=== PATIENT | female | born 1960 | race Caucasian/White ===

== ENCOUNTER 2021-06-16 11:20 | Emergency (ER) | payer SELFPAY ==
[~2021-06-16] VITALS: Ht 154.9 cm; Wt 47.6 kg
--- NOTE | 2021-06-16 12:11 | ED Abdominal Pain ---
General Chief Complaint: Abdominal/GI Problems Stated Complaint: ABD PAIN Nursing Triage Note: PATIENT STATES SHE HAS BEEN KATY EXTREMELY PAINFUL ABDOMINAL PAIN SINCE 2019 LAST EVENING. STATES THIS MORING BECAM UNBERABLE AND CALLED EMS. PATIENT IS BROUGHT TO ROOM 1 BY EMS. ALERT AND ORIENTED X4, CALL LIGHT IN REACH Source of Information: Patient Exam Limitations: No Limitations History of Present Illness Date Seen by Provider: Jun 16, 2021 Time Seen by Provider: 12:00 Initial Comments This is a 61 yo female who presented to the ER via [facility] with c/o severe abdominal pain that started around 2029 last night. States she woke today and pain was so severe she was unable to stand up straight. Pain is located in RLQ and LLQ, 3/10 at this time. No treatment prior to arrival. Does have history of colonic inertia. No fever, chills, cough, shortness of breath. States she had acid reflux/chest discomfort last night and agin this morning. No discomfort at this time. Denies blood or dark tarry stools. Allergies and Home Medications Allergies Coded Allergies: No Known Drug Allergies (Unverified , 06/16/21) Home Medications Ciprofloxacin HCl 500 Mg Tablet, 500 MG PO BID Prescribed by: ALEX SMITH on 06/16/21 140 Metronidazole 500 Mg Tablet, 500 MG PO TID Prescribed by: ALEX SMITH on 06/16/21 140 Ondansetron 4 Mg Tab.rapdis, 4 MG PO Q6H PRN for NAUSEA/VOMITING Prescribed by: ALEX SMITH on 06/16/21 140 Patient Home Medication List Home Medication List Reviewed: Yes Review of Systems Review of Systems Constitutional: no symptoms reported EENTM: No Symptoms Reported Respiratory: No Symptoms Reported Cardiovascular: No Symptoms Reported Gastrointestinal: See HPI Genitourinary: No Symptoms Reported Musculoskeletal: no symptoms reported Skin: no symptoms reported Psychiatric/Neurological: No Symptoms Reported Endocrine: No Symptoms Reported Hematologic/Lymphatic: No Symptoms Reported Past Omgriqo-Hldxpy-Hqbeoy Hx Patient Social History Tobacco Use?: No Substance use?: No Alcohol Use?: Yes Alcohol type: Beer Immunizations Up To Date Influenza Vaccine Up-to-Date: No; Not Current First/Initial COVID19 Vaccinat: 01/23/21 Second COVID19 Vaccination [place]: JANUARY 2021 COVID19 Vaccine Food And Beverage Manager: ALBERTA Physical Exam Vital Signs Vital Signs - First Documented 06/16/21 11:20 Temp 36.4 Pulse 75 Resp 18 B/P (MAP) 133/80 (97) Pulse Ox 100 O2 Delivery Room Air Capillary Refill : Less Than 3 Seconds Height/Weight/BMI Height: '" Weight: lbs. oz. kg; 19.00 BMI Method: General Appearance: WD/WN, no apparent distress HEENT: PERRL/EOMI, normal ENT inspection, pharynx normal Neck: full range of motion, normal inspection Respiratory: lungs clear, normal breath sounds, no respiratory distress, no accessory muscle use Cardiovascular: regular rate, rhythm, no edema, no murmur Peripheral Pulses: 2+ Radial Pulses (R), 2+ Radial Pulses (L) Gastrointestinal: soft, no organomegaly, no pulsatile mass, abnormal bowel sounds (hypoactive x4 ); No distended, No guarding; tenderness (RLQ and LLQ tenderness ) Extremities: normal range of motion, normal inspection Neurologic/Psychiatric: no motor/sensory deficits, alert, normal mood/affect, oriented x 3 Skin: normal color, warm/dry Progress/Results/Core Measures Results/Orders Lab Results Laboratory Tests Test 06/16/21 11:30 Range/Units White Blood Count 11.6 H 4.3-11.0 10^3/uL Red Blood Count 4.80 3.80-5.11 10^6/uL Hemoglobin 14.0 11.5-16.0 g/dL Hematocrit 42 35-52 % Mean Corpuscular Volume 87 80-99 fL Mean Corpuscular Hemoglobin 29 25-34 pg Mean Corpuscular Hemoglobin Concent 34 32-36 g/dL Red Cell Distribution Width 13.2 10.0-14.5 % Platelet Count 384 130-400 10^3/uL Mean Platelet Volume 9.4 9.0-12.2 fL Immature Granulocyte % (Auto) 0 % Neutrophils (%) (Auto) 78 H 42-75 % Lymphocytes (%) (Auto) 18 12-44 % Monocytes (%) (Auto) 4 0-12 % Eosinophils (%) (Auto) 0 0-10 % Basophils (%) (Auto) 0 0-10 % Neutrophils # (Auto) 9.0 H 1.8-7.8 10^3/uL Lymphocytes # (Auto) 2.1 1.0-4.0 10^3/uL Monocytes # (Auto) 0.4 0.0-1.0 10^3/uL Eosinophils # (Auto) 0.0 0.0-0.3 10^3/uL Basophils # (Auto) 0.0 0.0-0.1 10^3/uL Immature Granulocyte # (Auto) 0.0 0.0-0.1 10^3/uL Prothrombin Time 12.5 12.2-14.7 SEC INR Comment 0.9 0.8-1.4 Activated Partial Thromboplast Time 25 24-35 SEC Sodium Level 140 135-145 MMOL/L Potassium Level 3.4 L 3.6-5.0 MMOL/L Chloride Level 109 H 98-107 MMOL/L Carbon Dioxide Level 18 L 21-32 MMOL/L Anion Gap 13 5-14 MMOL/L Blood Urea Nitrogen 11 7-18 MG/DL Creatinine 0.76 0.60-1.30 MG/DL Estimat Glomerular Filtration Rate > 60 BUN/Creatinine Ratio 14 Glucose Level 150 H 70-105 MG/DL Calcium Level 9.3 8.5-10.1 MG/DL Corrected Calcium 9.1 8.5-10.1 MG/DL Magnesium Level 1.7 1.6-2.4 MG/DL Total Bilirubin 0.4 0.1-1.0 MG/DL Aspartate Amino Transf (AST/SGOT) 15 5-34 U/L Alanine Aminotransferase (ALT/SGPT) 16 0-55 U/L Alkaline Phosphatase 61 40-136 U/L Total Creatine Kinase 55 29-168 U/L Creatine Kinase MB 1.2 <6.6 NG/ML Myoglobin 29.0 10.0-92.0 NG/ML Troponin I < 0.028 <0.028 NG/ML Total Protein 7.4 6.4-8.2 GM/DL Albumin 4.2 3.2-4.5 GM/DL My Orders Orders - ALEX SMITH SANDING MACHINE BUFFER Cbc With Automated Diff (06/16/21 12:06) Magnesium (06/16/21 12:06) Chest 1 View, Ap/Pa Only (06/16/21 12:06) Ekg Tracing (06/16/21 12:06) Comprehensive Metabolic Panel (06/16/21 12:06) Myoglobin Serum (06/16/21 12:06) Protime With Inr (7/21/21 12:06) Partial Thromboplastin Time (06/16/21 12:06) O2 (06/16/21 12:06) Monitor-Rhythm Ecg Trace Only (06/16/21 12:06) Ed Iv/Invasive Line Start (06/16/21 12:06) Creatine Kinase (06/16/21 12:06) Creatine Kinase Mb (06/16/21 12:06) Troponin I (06/16/21 12:06) Ct Abdomen/Pelvis W (06/16/21 12:06) Ns Iv 1000 Ml (Sodium Chloride 0.9%) (06/16/21 12:15) Iohexol Injection (Omnipaque 350 Mg/Ml 1 (06/16/21 12:45) Received Contrast (Hold Metformin- Contr (06/16/21 12:45) Ns (Ivpb) (Sodium Chloride 0.9% Ivpb Bag (06/16/21 12:45) Sodium Chloride Flush (Catheter Flush Sy (06/16/21 12:45) Ketorolac Injection (Toradol Injection) (06/16/21 13:30) Metronidazole Tablet (Flagyl Tablet) (06/16/21 14:00) Medications Given in ED Vital Signs/I&O 06/16/21 06/16/21 11:20 14:22 Temp 36.4 Pulse 75 89 Resp 18 20 B/P (MAP) 133/80 (97) 108/65 (97) Pulse Ox 100 98 O2 Delivery Room Air Room Air 06/17/21 00:00 Intake Total 1000 ml Balance 1000 ml Blood Pressure Mean: 97 Progress Progress Note : Progress Note Much improved with Toradol. Reviewed plan of care and she is agreeable with plan. Initial ECG Impression Date: Jun 16, 2021 Initial ECG Impression Time: 12:29 Initial ECG Rate: 77 Initial ECG Rhythm: Normal Sinus Initial ECG Intervals: Normal Initial ECG Impression: Nonspecific Changes Initial ECG Comparisson: No Previous ECG Available Diagnostic Imaging Diagonstic Imaging: CT Plain Films/CT/US/NM/MRI: abdomen, pelvis Comments [place], [place] NAME: YNES VIZCAINO [facility] REC#: [id number] PT STATUS: REG ER : 1960 PHYSICIAN: ALEX SMITH SANDING MACHINE BUFFER ADMIT DATE: 06/16/21/ER Signed Date of Exam:06/16/21 CT ABDOMEN/PELVIS W EXAMINATION: CT abdomen and pelvis with intravenous contrast. TECHNIQUE: Multiple contiguous axial images were obtained through the abdomen and pelvis after the uneventful administration of intravenous contrast. All CT scans use one or more of the following dose optimizing techniques: automated exposure control, MA and/or KvP adjustment based on patient size and exam type or iterative reconstruction. HISTORY: RLQ/LLQ abdominal pain COMPARISON: None available. FINDINGS: Lung bases: Bibasilar dependent atelectasis. Solid organs: The liver is normal without focal lesion. The gallbladder is normal. There is no biliary ductal dilation. Pancreas is normal. Spleen is normal. Adrenal glands are normal. The kidneys are normal without hydronephrosis. Bowel: The stomach and small bowel are normal without obstruction. There is wall thickening of the sigmoid colon with mild inflammatory stranding. There is a large amount of stool seen throughout the remaining colon. No findings of acute appendicitis. Peritoneum: There is mild free fluid in the pelvis with mesenteric edema. No loculated fluid collection or intra-abdominal free air. No suspicious lymphadenopathy. Vasculature: Calcification of the aorta without aneurysm. Musculoskeletal: No suspicious osseous lesion or compression fracture. Pelvis: The uterus is surgically absent. No adnexal mass. The urinary bladder is normal. IMPRESSION: 1. Wall thickening and inflammatory stranding of the sigmoid colon with mild mesenteric edema and pelvic free fluid. These findings could represent infectious or inflammatory colitis and reactive ascites/edema. 2. Large volume of stool seen throughout the colon which can be seen with constipation in the appropriate clinical setting. Dictated by: Dictated on workstation # [id number] Dict: 06/16/21 1309 Trans: 06/16/21 1358 [id number] Interpreted by: RONAN ORO DO Electronically signed by: RONAN ORO DO 06/16/21 1357 Reviewed: Reviewed by Ne Diagonstic Imaging: Xray Plain Films/CT/US/NM/MRI: chest Comments [facility], [place] NAME: YNES VIZCAINO [facility] REC#: [id number] PT STATUS: DEP ER : 1960 PHYSICIAN: ALEX SMITH APRN ADMIT DATE: 06/16/21/ER Signed Date of Exam:06/16/21 CHEST 1 VIEW, AP/PA ONLY Indication: Abdominal pain and chest pain Frontal chest obtained at 1253 hours p.m. Heart and mediastinal silhouette are normal in appearance. The lungs are clear. There is no pneumothorax or pleural fluid. There is no free intraperitoneal air. IMPRESSION: Negative chest. Dictated by: Dictated on workstation # [id number] Dict: 06/16/21 1305 Trans: 06/16/21 1712 [facility] [id number] Interpreted by: CHRIS CRUZ MD Electronically signed by: CHRIS CRUZ MD 06/16/211711 Reviewed: Reviewed by Me Departure Impression Primary Impression: Colitis Additional Impressions: Constipation by delayed colonic transit Colonic inertia Disposition: HOME, SELF-CARE Condition: Improved Departure-Patient Inst. Decision time for Depature: 14:01 Referrals: CHRIS ESTRADA MD (PCP) Primary Care Physician Patient Instructions: Colitis Add. Discharge Instructions: Plan: 1. May take Ibuprofen 600mg every 6 hours as needed for severe pain. You may also alternate with Tylenol per package. 2. Clear liquid diet for the next 2-3 days. May eat applesauce with Ibuprofen. 3. Take antibiotics as directed and complete full course even if you begin to feel better. 4. Walk frequently at least 4x a day. 5. Take an over the counter probiotic as directed while you are taking your antibiotics. 6. Follow up with Dr. Estrada early next week. 7. May take Zofran 4mg by mouth every 6 hours as needed. 8. Return for any new, concerning, or worsening symptoms. All discharge instructions reviewed with patient and/or family. Voiced understanding. Scripts Metronidazole (Flagyl) 500 Mg Tablet 500 MG PO TID for 10 Days, #30 TAB 0 Refills Prov: ALEX SMITH SANDING MACHINE BUFFER 06/16/21 Ciprofloxacin HCl (Ciprofloxacin HCl) 500 Mg Tablet 500 MG PO BID for 10 Days, #20 TAB 0 Refills Prov: ALEX SMITH SANDING MACHINE BUFFER 06/16/21 Ondansetron (Ondansetron Odt) 4 Mg Tab.rapdis 4 MG PO Q6H PRN for NAUSEA/VOMITING, #30 TAB 0 Refills Prov: ALEX SMITH APRN 06/16/21 ALEX SMITH APRN Jun 16, 2021 12:11
[2021-06-16 12:15] LABS: BASOPHILS % (AUTO) 0 % (0-10); EOSINOPHILS % (AUTO) 0 % (0-10); HEMATOCRIT 42 % (35-52); LYMPHOCYTES # (AUTO) 2.1 10^3/uL (1.0-4.0); LYMPHOCYTES % (AUTO) 18 % (12-44); MEAN CORPUSCULAR HEMOGLOBIN 29 pg (25-34); MEAN CORPUSCULAR HGB CONC 34 g/dL (32-36); MEAN CORPUSCULAR VOLUME 87 fL (80-99); MEAN PLATELET VOLUME 9.4 fL (9.0-12.2); MONOCYTES # (AUTO) 0.4 10^3/uL (0.0-1.0); MONOCYTES % (AUTO) 4 % (0-12); NEUTROPHILS % (AUTO) 78 % (42-75); PLATELET COUNT 384 10^3/uL (130-400); WHITE BLOOD COUNT 11.6 10^3/uL (4.3-11.0)
[2021-06-16] MEDS ORDERED: NS IV 1000 ML 1,000 ML IV ONE (12:15)
[2021-06-16 12:26] LABS: INR 0.9 (0.8-1.4); PROTHROMBIN TIME PATIENT 12.5 SEC (12.2-14.7)
[2021-06-16 12:27] LABS: ALBUMIN 4.2 GM/DL (3.2-4.5)
[2021-06-16 12:28] LABS: CHLORIDE 109 MMOL/L (98-107); POTASSIUM 3.4 MMOL/L (3.6-5.0); SODIUM 140 MMOL/L (135-145)
[2021-06-16 12:29] LABS: CALCIUM 9.3 MG/DL (8.5-10.1)
[2021-06-16 12:30] LABS: GLUCOSE 150 MG/DL (70-105); TOTAL PROTEIN 7.4 GM/DL (6.4-8.2)
[2021-06-16 12:31] LABS: CARBON DIOXIDE 18 MMOL/L (21-32)
[2021-06-16 12:32] LABS: BILIRUBIN,TOTAL 0.4 MG/DL (0.1-1.0)
[2021-06-16 12:33] LABS: ALKALINE PHOSPHATASE 61 U/L (40-136)
[2021-06-16 12:34] LABS: CREATININE SERUM 0.76 MG/DL (0.60-1.30); GFR ESTIMATED > 60
[2021-06-16 12:35] LABS: BUN/CREATININE RATIO 14
[2021-06-16 12:36] LABS: ALANINE AMINOTRANSFERASE 16 U/L (0-55); MAGNESIUM 1.7 MG/DL (1.6-2.4)
[2021-06-16 12:37] LABS: CREATINE KINASE 55 U/L (29-168)
[2021-06-16 12:38] LABS: CREATINE KINASE MB 1.2 NG/ML (<6.6)
[2021-06-16] MEDS ORDERED: CATHETER FLUSH 10 ML SYR IV PRN (12:45)
[2021-06-16] MEDS ORDERED: IOHEXOL 350 MG/ML 100 ML (OMNIPAQUE 350) VIAL IV ONE (12:45)
[2021-06-16] MEDS ORDERED: HOLD METFORMIN - RECEIVED CONTRAST 20 ML VIAL IV SCH (12:45)
[2021-06-16] MEDS ORDERED: NS 100 ML (IVPB) BAG IV ONE (12:45)
--- NOTE | 2021-06-16 13:07 | Diagnostic Imaging Report ---
Indication: Abdominal pain and chest pain Frontal chest obtained at 1253 hours p.m. Heart and mediastinal silhouette are normal in appearance. The lungs are clear. There is no pneumothorax or pleural fluid. There is no free intraperitoneal air. IMPRESSION: Negative chest. Dictated by: Dictated on workstation # [id number]
--- NOTE | 2021-06-16 13:23 | Diagnostic Imaging Report ---
EXAMINATION: CT abdomen and pelvis with intravenous contrast. TECHNIQUE: Multiple contiguous axial images were obtained through the abdomen and pelvis after the uneventful administration of intravenous contrast. All CT scans use one or more of the following dose optimizing techniques: automated exposure control, MA and/or KvP adjustment based on patient size and exam type or iterative reconstruction. HISTORY: RLQ/LLQ abdominal pain COMPARISON: None available. FINDINGS: Lung bases: Bibasilar dependent atelectasis. Solid organs: The liver is normal without focal lesion. The gallbladder is normal. There is no biliary ductal dilation. Pancreas is normal. Spleen is normal. Adrenal glands are normal. The kidneys are normal without hydronephrosis. Bowel: The stomach and small bowel are normal without obstruction. There is wall thickening of the sigmoid colon with mild inflammatory stranding. There is a large amount of stool seen throughout the remaining colon. No findings of acute appendicitis. Peritoneum: There is mild free fluid in the pelvis with mesenteric edema. No loculated fluid collection or intra-abdominal free air. No suspicious lymphadenopathy. Vasculature: Calcification of the aorta without aneurysm. Musculoskeletal: No suspicious osseous lesion or compression fracture. Pelvis: The uterus is surgically absent. No adnexal mass. The urinary bladder is normal. IMPRESSION: 1. Wall thickening and inflammatory stranding of the sigmoid colon with mild mesenteric edema and pelvic free fluid. These findings could represent infectious or inflammatory colitis and reactive ascites/edema. 2. Large volume of stool seen throughout the colon which can be seen with constipation in the appropriate clinical setting. Dictated by: Dictated on workstation # [id number]
[2021-06-16] MEDS ORDERED: KETOROLAC 30 MG/ML VIAL IVP ONE (13:30)
[2021-06-16] MEDS ORDERED: metroNIDAZOLE 500 MG (FLAGYL) TAB PO ONE (14:00)
[2021-06-16] MEDS ORDERED: CIPR500T5 PO (14:06)
[2021-06-16] MEDS ORDERED: METR500T PO (14:06)
[2021-06-16] MEDS ORDERED: ONDA4TAB11 PO (14:06)
[2021-06-16 14:22] VITALS: BP 108/65
== END 2021-06-16 14:22 | disposition home or self-care (01) ==
LOC: ER 11:28
DX: K52.9 Noninfective gastroenteritis and colitis, unspecified (principal); K59.00 Constipation, unspecified; K31.89 Other diseases of stomach and duodenum
CPT/HCPCS: 36415; 71045; 74177; 80053; 82550; 82553; 83735; 83874; 84484; 85025; 85610; 85730; 93005; 93041